=== PATIENT | male | born 1945 | race Caucasian/White ===

== ENCOUNTER 2016-07-18 22:53 | Inpatient (IN) | payer MEDICARE ==
[~2016-07-18] VITALS: Ht 188 cm; Wt 101.9 kg
[2016-07-18] MEDS ORDERED: ATOR10TA9 PO (22:58)
[2016-07-18] MEDS ORDERED: AMLO5TAB4 PO (22:58)
[2016-07-18] MEDS ORDERED: DIAZ2TAB3 PO (22:58)
[2016-07-18] MEDS ORDERED: MAALOX/HYOSCYAMINE/LIDOCAINE 45 ML BOTTLE ONE (23:27)
[2016-07-18] MEDS ORDERED: SODIUM CHLORIDE FLUSH 10ML SYR IVF ONE (23:30)
[2016-07-18] MEDS ORDERED: MAALOX/HYOSCYAMINE/LIDOCAINE 45 ML BOTTLE PO ONE (23:30)
[2016-07-18] MEDS ORDERED: FAMOTIDINE 20 MG/2 ML IVP ONE (23:30)
[2016-07-18] MEDS ORDERED: OMNIPAQUE 350 MG/ML, 100ML BOTTLE ONE (23:38)
[2016-07-18] MEDS ORDERED: ONDANSETRON 2MG/ML, 2ML ONE (23:42)
[2016-07-18] MEDS ORDERED: MORPHINE SULFATE 4 MG/ML, 1ML ONE (23:42)
[2016-07-18] MEDS: MORPHINE SULFATE 4 MG/ML, 1ML IVPush PRN (23:43)
[2016-07-18] MEDS ORDERED: FAMOTIDINE 20 MG/2 ML ONE (23:50)
[2016-07-18 23:59] LABS: ASPARTATE AMINO TRANSFERASE 13 U/L (15-37); BLOOD UREA NITROGEN 27 mg/dL (7-18)
[2016-07-19 00:03] LABS: IS PT STATUS REG ER OR PRE ER? YES
[2016-07-19] MEDS ORDERED: MORPHINE SULFATE 4 MG/ML, 1ML ONE (00:17)
[2016-07-19] MEDS: MORPHINE SULFATE 4 MG/ML, 1ML IVPush PRN (00:19)
[2016-07-19] MEDS ORDERED: ONDANSETRON 2MG/ML, 2ML IVPush ONE (00:30)
[2016-07-19] MEDS ORDERED: CEFOTETAN PMX 1GM/50ML 50 ML ONE (01:05)
[2016-07-19] MEDS ORDERED: HYDROmorphone 1 MG/ML, 1ML ONE (01:10)
[2016-07-19] MEDS ORDERED: HYDROmorphone 2 MG/ML, 1ML IVPush ONE (01:30)
[2016-07-19] MEDS ORDERED: CEFOTETAN PMX 1GM/50ML 50 ML IV ONE (01:30)
[2016-07-19 02:45] VITALS: BP 154/94
[2016-07-19] MEDS ORDERED: ATOR40TA78 PO (03:03)
[2016-07-19] MEDS ORDERED: AMLO10TA4 PO (03:05)
[2016-07-19] MEDS ORDERED: DIAZ5TAB4 PO (03:06)
[2016-07-19 07:59] VITALS: BP 129/81
[2016-07-19] MEDS ORDERED: ACETAMINOPHEN 325 MG TABLET PO PRN (09:30)
[2016-07-19] MEDS ORDERED: HYDROmorphone 2 MG/ML, 1ML IV PRN (09:30)
[2016-07-19] MEDS ORDERED: ONDANSETRON 2MG/ML, 2ML IVP PRN (09:30)
[2016-07-19] MEDS ORDERED: LACTATED RINGERS 1,000 ML IV SCH (10:00)
[2016-07-19] MEDS: SODIUM CHLORIDE 0.9% 1,000 ML IV SCH ×2 (10:16→21:21)
[2016-07-19] MEDS ORDERED: POTASSIUM CHLORIDE 40 MEQ in SODIUM CHLORIDE 0.9% 500 ML IV ONE (11:00)
[2016-07-19] MEDS ORDERED: BUPIVACAINE/PF-EPI 0.5% 1:200K ONE (12:35)
[2016-07-19] MEDS ORDERED: PROPOFOL 10 MG/ML, 20ML ONE (13:31)
[2016-07-19] MEDS ORDERED: CEFAZOLIN 1,000 MG ONE (13:31)
[2016-07-19] MEDS ORDERED: ROCURONIUM 10 MG/ML ONE (13:31)
[2016-07-19] MEDS ORDERED: DEXAMETHASONE 4 MG/ML, 1ML ONE (13:31)
[2016-07-19] MEDS ORDERED: ONDANSETRON 2MG/ML, 2ML ONE (13:31)
[2016-07-19] MEDS ORDERED: SUCCINYLCHOLINE 20 MG/ML, 10ML ONE (13:31)
[2016-07-19] MEDS ORDERED: FENTANYL PF 100 MCG/2ML ONE ×2 (13:35→15:26)
[2016-07-19] MEDS ORDERED: MIDAZOLAM 1 MG/ML, 2ML IV PRN (14:00)
[2016-07-19] MEDS ORDERED: OXYcodone 5 MG/5 ML ORAL.SOL UDC PO PRN (14:00)
[2016-07-19] MEDS ORDERED: hydrALAzine 20 MG/ML, 1ML IV PRN (14:00)
[2016-07-19] MEDS ORDERED: ONDANSETRON 2MG/ML, 2ML IVPush PRN (14:00)
[2016-07-19] MEDS ORDERED: HYDROmorphone 1 MG/ML, 1ML IV PRN (14:00)
[2016-07-19] MEDS ORDERED: LABETALOL 5MG/ML, 20ML IV PRN (14:00)
[2016-07-19] MEDS ORDERED: THROMBIN 5,000 UNIT VIAL TP ONE (14:15)
[2016-07-19] MEDS ORDERED: OXYcodone 5 MG/5 ML ORAL.SOL UDC ONE (15:14)
[2016-07-19] MEDS ORDERED: ACETAMINOPHEN 650 MG/20.3 ML UDC ONE (15:15)
[2016-07-19] MEDS: FENTANYL PF 100 MCG/2ML IV PRN ×4 (15:28→15:57)
[2016-07-19 16:29] VITALS: BP 140/81
[2016-07-19 18:22] VITALS: BP 129/81
[2016-07-19] MEDS: OXYcodone IR 5MG TABLET PO PRN (21:20)
[2016-07-20 00:54] VITALS: BP 122/89
[2016-07-20] MEDS: SODIUM CHLORIDE 0.9% 1,000 ML IV SCH ×2 (02:40→23:19)
[2016-07-20 04:37] VITALS: BP 139/80
[2016-07-20 05:44] LABS: BLOOD UREA NITROGEN 18 mg/dL (7-18)
[2016-07-20 05:47] LABS: ASPARTATE AMINO TRANSFERASE 147 U/L (15-37)
[2016-07-20 07:10] VITALS: BP 132/75
[2016-07-20] MEDS ORDERED: FENTANYL PF 100 MCG/2ML ONE (09:40)
[2016-07-20] MEDS ORDERED: ONDANSETRON 2MG/ML, 2ML ONE (09:49)
[2016-07-20] MEDS ORDERED: SUCCINYLCHOLINE 20 MG/ML, 10ML ONE (09:49)
[2016-07-20] MEDS ORDERED: PROPOFOL 10 MG/ML, 20ML ONE (09:49)
[2016-07-20] MEDS ORDERED: ROCURONIUM 10 MG/ML ONE (09:49)
[2016-07-20] MEDS ORDERED: OMNIPAQUE 350 MG/ML, 50 ML BOTTLE ONE (10:21)
[2016-07-20] MEDS ORDERED: HYDROmorphone 1 MG/ML, 1ML IV PRN (10:30)
[2016-07-20] MEDS ORDERED: ONDANSETRON 2MG/ML, 2ML IVPush PRN (10:30)
[2016-07-20] MEDS ORDERED: OXYcodone 5 MG/5 ML ORAL.SOL UDC PO PRN (10:30)
[2016-07-20] MEDS ORDERED: hydrALAzine 20 MG/ML, 1ML IV PRN (10:30)
[2016-07-20] MEDS ORDERED: LABETALOL 5MG/ML, 20ML IV PRN (10:30)
[2016-07-20] MEDS ORDERED: FENTANYL PF 100 MCG/2ML IV PRN (10:30)
[2016-07-20] MEDS ORDERED: OXYcodone 5 MG/5 ML ORAL.SOL UDC ONE (10:43)
[2016-07-20] MEDS: OXYcodone IR 5MG TABLET PO PRN ×2 (13:02→20:41)
[2016-07-20 13:37] VITALS: BP 138/88
[2016-07-20 20:50] VITALS: BP 127/78
[2016-07-21 02:50] VITALS: BP 144/85
[2016-07-21 06:30] VITALS: BP 122/78
[2016-07-21] MEDS: SODIUM CHLORIDE 0.9% 1,000 ML IV SCH ×3 (06:47→23:35)
[2016-07-21 10:54] LABS: BLOOD UREA NITROGEN 13 mg/dL (7-18)
[2016-07-21 10:59] LABS: ASPARTATE AMINO TRANSFERASE 48 U/L (15-37)
[2016-07-21 12:30] VITALS: BP 129/79
[2016-07-21] MEDS: OXYcodone IR 5MG TABLET PO PRN (20:16)
[2016-07-21 20:35] VITALS: BP 120/75
[2016-07-22] MEDS: OXYcodone IR 5MG TABLET PO PRN ×5 (01:10→23:10)
[2016-07-22] MEDS: TEMAZEPAM 15 MG CAPSULE PO PRN ×2 (01:10→23:11)
[2016-07-22 01:24] VITALS: BP 122/69
[2016-07-22 04:59] LABS: BLOOD UREA NITROGEN 13 mg/dL (7-18)
[2016-07-22 05:02] LABS: ASPARTATE AMINO TRANSFERASE 30 U/L (15-37)
[2016-07-22 06:35] VITALS: BP 127/85
[2016-07-22] MEDS: SODIUM CHLORIDE 0.9% 1,000 ML IV SCH ×2 (07:49→14:34)
[2016-07-22 12:50] VITALS: BP 142/88
[2016-07-22 20:20] VITALS: BP 135/88
[2016-07-23 02:55] VITALS: BP 133/83
[2016-07-23] MEDS: OXYcodone IR 5MG TABLET PO PRN ×3 (03:33→21:06)
[2016-07-23] MEDS: SODIUM CHLORIDE 0.9% 1,000 ML IV SCH ×3 (03:35→21:09)
[2016-07-23 06:44] VITALS: BP 134/85
[2016-07-23 12:50] VITALS: BP 136/90
[2016-07-23 18:55] VITALS: BP 121/81
[2016-07-23] MEDS ORDERED: DIPHENHYDRAMINE 25 MG CAPSULE PO PRN (21:00)
[2016-07-24] MEDS: OXYcodone IR 5MG TABLET PO PRN ×3 (02:50→12:52)
[2016-07-24 02:54] VITALS: BP 129/81
[2016-07-24 04:51] LABS: BLOOD UREA NITROGEN 9 mg/dL (7-18)
[2016-07-24 04:54] LABS: ASPARTATE AMINO TRANSFERASE 27 U/L (15-37)
[2016-07-24 07:38] VITALS: BP 119/79
[2016-07-24] MEDS ORDERED: OXYC5TAB3 PO (10:52)
[2016-07-24 14:03] VITALS: BP 131/84
== END 2016-07-24 15:18 | disposition home or self-care (01) | DRG 853 ==
LOC: ED 07-19 01:55 → EDIP 07-19 02:05 → 3NW 07-19 02:37 → DCLOUNGE 07-24 14:38
PROVIDERS: ADMIT Internal Medicine; ATTEND Family Medicine
PROC: 0FT44ZZ Resection of Gallbladder, Percutaneous Endoscopic Approach (ICD-10-PCS; principal; 2016-07-19 15:00)
PROC: 0FC98ZZ Extirpation of Matter from Common Bile Duct, Via Natural or Artificial Opening Endoscopic (ICD-10-PCS; 2016-07-20)
PROC: BF111ZZ Fluoroscopy of Biliary and Pancreatic Ducts using Low Osmolar Contrast (ICD-10-PCS; 2016-07-20)
DX: A41.9 Sepsis, unspecified organism (principal); N17.0 Acute kidney failure with tubular necrosis; E87.1 Hypo-osmolality and hyponatremia; K80.71 Calculus of gallbladder and bile duct without cholecystitis with obstruction; I10 Essential (primary) hypertension; E78.5 Hyperlipidemia, unspecified; E86.0 Dehydration; I25.10 Atherosclerotic heart disease of native coronary artery without angina pectoris; K59.00 Constipation, unspecified; K66.0 Peritoneal adhesions (postprocedural) (postinfection); K82.8 Other specified diseases of gallbladder; Z96.651 Presence of right artificial knee joint; Z79.899 Other long term (current) drug therapy; Z79.82 Long term (current) use of aspirin
CPT/HCPCS: 36415; 71010; 74177; 74328; 76700; 80053; 83690; 83735; 84484; 85025; 88304; 93005; 96365; 96375; J0690; J1100; J1170; J2405; J2704; J3010; J3480; Q9967; J0330; J7030; J7040; Q0163; S0028; S0074